=== PATIENT | female | born 1980 ===

== ENCOUNTER 2016-12-29 07:28 | Day surgery (SDC) | payer OTHER ==
[2016-12-21 09:27] VITALS: BMI 40.4
[2016-12-29] MEDS ORDERED: Propofol 10 mg/ml Inj (20 ML) ONE (08:43)
[2016-12-29] MEDS ORDERED: Midazolam 2 MG/2 ML VIAL ONE (08:43)
[2016-12-29] MEDS ORDERED: Lactated Ringer's 1,000 ML IV ONE (09:00)
--- NOTE | 2016-12-29 09:55 | PCM.SURG1 ---
Surgeon's Initial Post Op Note - Surgeon's Notes Surgeon: Sallie Rojas MD Herb Grower: Amita Bear Type of Anesthesia: General LMA Pre-Operative Diagnosis: Abnormal uterine bleeding Operative Findings: 10 week size uteurs, bilateral ostia visualized, thicked white proliferative endometrium, enodmetrial polypoid tissues adherend to left uterine wall 7 olcok 1cm protruding into cavity, no adnexal masses, normal appearing stenotic ccervix Post-Operative Diagnosis: same as lucia Operation Performed: Operative hysteroscopy, fractional dilation and currettage , enodmetrial polypecotmy Specimen/Specimens Removed: endocervical currettins, endometrial currettings, endometrial polyp Estimated Blood Loss: EBL {In ML}: 10 Blood Products Given: N/A Drains Used: No Drains Post-Op Condition: Good Date of Surgery/Procedure: 12/29/16 Time of Surgery/Procedure: 09:00
[2016-12-29 11:27] VITALS: RESP 18
[2016-12-29 12:00] VITALS: BP 148/95; PULSE 84; TEMP 98; O2SAT 98
--- NOTE | 2016-12-29 13:09 | OP ---
PROCEDURE DATE: PREOPERATIVE DIAGNOSIS: Abnormal uterine bleeding. POSTOPERATIVE DIAGNOSES: Abnormal uterine bleeding with endometrial polyp. OPERATION PERFORMED: Operative hysteroscopy and fractional dilation and curettage, endometrial polypectomy. SURGEON: Sallie Rojas MD [employer] JOCKEY: Dr. Venus Bear DO____ TYPE OF ANESTHESIA: General LMA. OPERATIVE FINDINGS: 10 weeks' size uterus, bilateral ostia visualized, thickened white proliferative endometrium, endometrial polypoid tissue adherent to left uterine wall 7 o'clock 1 cm protruding into cavity, no adnexal masses, normal appearing stenotic cervix. ESTIMATED BLOOD LOSS: 10 mL BLOOD PRODUCTS: None. COMPLICATIONS: None. SPECIMEN: Endometrial curettings, endocervical curettings and endometrial polyp. DESCRIPTION OF PROCEDURE: The patient was taken to the operating room where she was given general anesthesia. Once found to be adequate, she was placed on the operating table in the dorsal supine position with legs supported using stirrups. The patient was prepped and draped in the usual sterile fashion. A time-out confirmed correct patient and correct procedure. Bimanual exam was performed with the above-mentioned findings. A Hathaway retractor was entered in the anteroposterior fornix of the vagina. The cervix was adequately visualized. A single-tooth tenaculum was placed on the anterior lip of the cervix and endocervical curettings were obtained with a Twila curette and sent to pathology on [facility]. The uterus was then sounded to 3 inches and following this, the cervix was sequentially dilated with a Piter dilator to allow for introduction of the hysteroscope under direct visualization using normal saline as a distention media. Upon visualization, bilateral ostia are visualized with a white thickened proliferative endometrium throughout the cavity and also polypoid tissue noted within the cavity. A MyoSure device was then inserted under direct visualization and the mass was then carefully resected under direct visualization. The MyoSure device was then removed and a gentle curettage was done 360 degrees texture was noted. The specimen was labeled as endometrial curettings. All instruments removed. There was good hemostasis noted at the tenaculum puncture site. There were no complications. At the end of the procedure, all needle, sponge, and instrument counts were noted and correct x2. The patient tolerated the procedure well and was transferred to the recovery room in stable condition. Sallie Rojas MD Joe # [id number] GALDINO
== END 2016-12-29 12:00 | disposition home or self-care (01) ==
LOC: C.SDS 07:28
PROVIDERS: ATTEND Obstetrics & Gynecology
DX: N84.0 Polyp of corpus uteri (principal); N93.9 Abnormal uterine and vaginal bleeding, unspecified
CPT/HCPCS: 58558; 88305; J1100; J2001; J2250; J2405; J2704; J3010; J7120